=== PATIENT | female | born 1985 | race Caucasian/White ===

== ENCOUNTER 2022-06-01 08:42 | Outpatient (CLI) | payer OTHER | END 2022-06-01 08:48 | disposition home or self-care (01) | LOC: RX STUDY 08:42 | PROVIDERS: ATTEND Internal Medicine | DX: R13.12 Dysphagia, oropharyngeal phase (principal) ==

== ENCOUNTER 2022-07-19 09:04 | Outpatient (CLI) | payer OTHER | END 2022-07-19 09:07 | disposition home or self-care (01) | LOC: RX STUDY 09:04 | PROVIDERS: ATTEND Surgery | DX: K21.9 Gastro-esophageal reflux disease without esophagitis (principal) ==